=== PATIENT | male | born 1965 | race Caucasian/White ===

== ENCOUNTER → 2020-12-28 | Outpatient (CLI) | payer OTHER ==
[~2020-12-28] MED LIST: ASPIRIN81 MG PO; DEPO-TESTO100 MG/1 M IM; LEVOTHYROXINE100 MCG PO; LISINOPRIL10 MG PO; METFORMIN HCL500 M2 PO; MULTIVITAMINS1 EAC1 PO; PAROXETINE HCL40 MG PO; SIMVASTATIN40 MG PO; STELARA90 MG/1 ML SQ; VITAMIN D32000 UNI1 PO
[2020-12-28 11:37] LABS: RED BLOOD COUNT 4.68 M/UL (4.20-5.50); WHITE BLOOD COUNT 6.5 K/UL (4.5-11.0)
[2020-12-28 11:56] LABS: BUN/CREATININE RATIO 22 (0-10)
== END ==
LOC: LAB 10:26
PROVIDERS: Dermatology
DX: J43.9 Emphysema, unspecified (principal); L40.1 Generalized pustular psoriasis; L40.0 Psoriasis vulgaris
CPT/HCPCS: 36415; 71046; 80053; 85027

== ENCOUNTER → 2022-01-31 | Outpatient (CLI) | payer OTHER ==
[2022-01-31 15:41] LABS: HEMOGLOBIN 14.9 gm/dl (14.0-17.5); RED BLOOD COUNT 4.75 M/UL (4.20-5.50); WHITE BLOOD COUNT 5.8 K/UL (4.5-11.0)
[2022-01-31 16:13] LABS: BUN/CREATININE RATIO 14 (0-10)
[2022-02-04 13:09] LABS: QUANTIFERON MITOGEN VALUE >10.00 IU/mL (.); QUANTIFERON NIL VALUE 0.06 IU/mL (.); QUANTIFERON TB2 AG VALUE 0.08 IU/mL (.); QUANTIFERON-TB GOLD PLUS Negative (Negative)
== END ==
LOC: LAB 15:17
PROVIDERS: Dermatology
DX: J43.9 Emphysema, unspecified (principal); L40.0 Psoriasis vulgaris; L40.1 Generalized pustular psoriasis
CPT/HCPCS: 36415; 71046; 80053; 80076; 85025